=== PATIENT | male | born 1935 | race African-American/Black ===

== ENCOUNTER 2018-10-19 13:25 | Inpatient (IN) | payer MEDICARE, MEDICAID ==
[~2018-10-19] VITALS: Ht 167.6 cm; Wt 102.0 kg
[2018-10-19 13:00] VITALS: BP 126/73
[~2018-10-19 13:25] MED LIST: ATOR10TA PO; BRIM.2 BOTHEYE; CEPH500C2 PO; GABA100C PO; MECL25TA3 PO; NAP5EC PO; NASOI NS; OMEP20CA5 PO; TERB250T51 PO; VERA240C2 PO; [UNRECOGNIZED DRUG - CODE] TOP; [UNRECOGNIZED DRUG - CODE] TP
[2018-10-19] MEDS ORDERED: LACTULOSE 20G/30ML UDC PO SCH (14:00)
[2018-10-19] MEDS ORDERED: ONDANSETRON 4MG ODT PO PRN (14:15)
[2018-10-19] MEDS ORDERED: IPRATROPIUM BROMIDE (0.02%) 0.5MG/2.5ML NEB HHN PRN (14:15)
[2018-10-19] MEDS ORDERED: CLONIDINE 0.1MG TABLET PO PRN (14:15)
[2018-10-19] MEDS ORDERED: LORAZEPAM 0.5MG TABLET PO PRN (14:15)
[2018-10-19] MEDS ORDERED: IPRATROPIUM/ALBUTEROL 0.5-3(2.5)MG/3ML NEB HHN PRN (14:30)
[2018-10-19] MEDS: APIXABAN 5 MG TABLET PO SCH (17:22)
[2018-10-19] MEDS: DIGOXIN 250MCG TABLET PO SCH (17:23)
[2018-10-19] MEDS: DILTIAZEM HCL 60MG TABLET PO SCH (17:24)
[2018-10-19 20:00] VITALS: BP 114/55
[2018-10-19] MEDS: LACTULOSE 20G/30ML UDC PO SCH (20:00)
[2018-10-19] MEDS: FAMOTIDINE 20MG TABLET PO SCH (22:31)
[2018-10-19] MEDS: METOPROLOL TARTRATE 50MG TABLET PO SCH (22:31)
[2018-10-20 07:53] VITALS: BP 137/65
[2018-10-20] MEDS: METOPROLOL TARTRATE 50MG TABLET PO SCH ×2 (09:05→20:38)
[2018-10-20] MEDS: FAMOTIDINE 20MG TABLET PO SCH ×2 (09:05→20:38)
[2018-10-20] MEDS: LACTULOSE 20G/30ML UDC PO SCH (09:05)
[2018-10-20] MEDS: APIXABAN 5 MG TABLET PO SCH ×2 (09:05→16:10)
[2018-10-20] MEDS: DILTIAZEM HCL 60MG TABLET PO SCH ×3 (09:05→16:10)
[2018-10-20 09:31] LABS: BASOPHILS % 0.9 % (0.0-2.0); EOSINOPHILS % 2.2 % (0.0-5.0); HEMATOCRIT. 37.3 % (42.0-52.0); HEMOGLOBIN. 12.6 g/dL (14.0-18.0); LYMPHOCYTES % 17.7 % (20.0-50.0); MEAN CORPUSCULAR HEMOGLOBIN 30.6 pg (28.0-32.0); MEAN CORPUSCULAR VOLUME 90.4 fL (80.0-94.0); MEAN PLATELET VOLUME 7.5 fl (7.4-10.4); MONOCYTES % 7.6 % (2.0-8.0); NEUTROPHILS % 71.6 % (40.0-76.0); PLATELET 408 x1000/uL (130-400); RED BLOOD CELL COUNT 4.13 mill/uL (4.7-6.1); RED CELL DISTRIBUTION WIDTH 13.6 % (11.6-14.6)
[2018-10-20 09:44] LABS: CHLORIDE 106 mEq/L (98-107)
[2018-10-20] MEDS ORDERED: BISACODYL 10MG SUPP PR NR (12:30)
[2018-10-20] MEDS: DIGOXIN 250MCG TABLET PO SCH (16:10)
[2018-10-20 20:00] VITALS: BP 133/61
[2018-10-20] MEDS: ACETAMINOPHEN 650MG/20.3ML UDC PO PRN (20:38)
[2018-10-20] MEDS: LACTULOSE 20G/30ML UDC PO PRN (20:38)
[2018-10-21 06:18] LABS: BASOPHILS % 0.9 % (0.0-2.0); HEMOGLOBIN. 12.4 g/dL (14.0-18.0); LYMPHOCYTES % 22.9 % (20.0-50.0); MEAN CORPUSCULAR HEMOGLOBIN 30.9 pg (28.0-32.0); MEAN CORPUSCULAR VOLUME 90.1 fL (80.0-94.0); MEAN PLATELET VOLUME 7.1 fl (7.4-10.4); MONOCYTES % 8.6 % (2.0-8.0); NEUTROPHILS % 65.6 % (40.0-76.0); PLATELET 400 x1000/uL (130-400); RED CELL DISTRIBUTION WIDTH 13.5 % (11.6-14.6)
[2018-10-21 06:23] LABS: CHLORIDE 105 mEq/L (98-107)
[2018-10-21 06:36] LABS: TOTAL IRON BINDING CAPACITY 305 ug/dL (250-450)
[2018-10-21 06:42] LABS: FOLIC ACID (FOLATE) SERUM 15.3 ng/mL (>5.38)
[2018-10-21 06:52] LABS: PROSTRATE SPECIFIC AG TOTAL 0.04 ng/mL (0.0-4.0)
[2018-10-21 08:00] VITALS: BP 121/70
[2018-10-21] MEDS: DILTIAZEM HCL 60MG TABLET PO SCH ×3 (09:01→16:56)
[2018-10-21] MEDS: METOPROLOL TARTRATE 50MG TABLET PO SCH ×2 (09:01→20:50)
[2018-10-21] MEDS: FAMOTIDINE 20MG TABLET PO SCH ×2 (09:01→20:50)
[2018-10-21] MEDS: LACTULOSE 20G/30ML UDC PO SCH (09:01)
[2018-10-21] MEDS: APIXABAN 5 MG TABLET PO SCH ×2 (11:22→16:55)
[2018-10-21] MEDS ORDERED: SORBITOL 70% SOLN 30ML PO SCH (12:15)
[2018-10-21] MEDS: FERROUS SULFATE 325MG TABLET PO SCH ×2 (12:44→16:55)
[2018-10-21] MEDS: ASCORBIC ACID 500 MG TABLET PO SCH (12:44)
[2018-10-21] MEDS: DIGOXIN 250MCG TABLET PO SCH (17:00)
[2018-10-21 20:00] VITALS: BP 132/59
[2018-10-21] MEDS: NA PHOS,M-B/NA PHOS,DI-BA ENEMA 118ML PR PRN (20:51)
[2018-10-22 08:17] VITALS: BP 129/62
[2018-10-22] MEDS: FERROUS SULFATE 325MG TABLET PO SCH ×3 (09:01→17:12)
[2018-10-22] MEDS: DILTIAZEM HCL 60MG TABLET PO SCH ×3 (09:02→17:14)
[2018-10-22] MEDS: FAMOTIDINE 20MG TABLET PO SCH ×2 (09:03→21:51)
[2018-10-22] MEDS: METOPROLOL TARTRATE 50MG TABLET PO SCH ×2 (09:03→21:50)
[2018-10-22] MEDS: APIXABAN 5 MG TABLET PO SCH ×2 (09:03→17:12)
[2018-10-22] MEDS: ASCORBIC ACID 500 MG TABLET PO SCH (09:03)
[2018-10-22] MEDS: LACTULOSE 20G/30ML UDC PO SCH (09:06)
[2018-10-22] MEDS: ACETAMINOPHEN 650MG/20.3ML UDC PO PRN (11:16)
[2018-10-22] MEDS: LIDOCAINE 5% PATCH TOP SCH (12:22)
[2018-10-22] MEDS: METHYL SALICYLATE/MENTHOL CREAM 85GM TOP PRN (14:39)
[2018-10-22] MEDS: DOCUSATE SODIUM 100MG CAPSULE PO SCH (17:12)
[2018-10-22] MEDS: DIGOXIN 250MCG TABLET PO SCH (17:13)
[2018-10-22 20:00] VITALS: BP 137/70
[2018-10-22] MEDS: POLYETHYLENE GLYCOL 3350 (17GM) 1 DOSE PACK PO SCH (21:00)
[2018-10-23 07:55] LABS: CLARITY URINE CLEAR (CLEAR); COLOR URINE YELLOW (YELLOW); KETONES URINE NEGATIVE (NEGATIVE); LEUKOCYTE ESTERASE URINE NEGATIVE (NEGATIVE); NITRITE URINE NEGATIVE (NEGATIVE); OCCULT BLOOD URINE NEGATIVE (NEGATIVE); PH URINE 5.5 (4.5-8.0); PROTEIN URINE NEGATIVE (NEGATIVE); SPECIFIC GRAVITY URINE 1.021 (1.005-1.030)
[2018-10-23 08:10] VITALS: BP 126/60
[2018-10-23] MEDS: LACTULOSE 20G/30ML UDC PO SCH (08:33)
[2018-10-23] MEDS: ACETAMINOPHEN 650MG/20.3ML UDC PO PRN (08:33)
[2018-10-23] MEDS: METOPROLOL TARTRATE 50MG TABLET PO SCH ×2 (08:34→21:48)
[2018-10-23] MEDS: FAMOTIDINE 20MG TABLET PO SCH ×2 (08:34→21:48)
[2018-10-23] MEDS: DOCUSATE SODIUM 100MG CAPSULE PO SCH ×2 (08:34→16:23)
[2018-10-23] MEDS: FERROUS SULFATE 325MG TABLET PO SCH ×3 (08:34→16:23)
[2018-10-23] MEDS: DILTIAZEM HCL 60MG TABLET PO SCH ×3 (08:34→16:24)
[2018-10-23] MEDS: ASCORBIC ACID 500 MG TABLET PO SCH (08:34)
[2018-10-23] MEDS: LIDOCAINE 5% PATCH TOP SCH (08:35)
[2018-10-23] MEDS: APIXABAN 5 MG TABLET PO SCH ×2 (10:55→16:23)
[2018-10-23] MEDS: DIGOXIN 250MCG TABLET PO SCH (17:09)
[2018-10-23 20:00] VITALS: BP 143/59
[2018-10-23] MEDS: POLYETHYLENE GLYCOL 3350 (17GM) 1 DOSE PACK PO SCH (21:48)
[2018-10-24 07:36] LABS: BASOPHILS % 0.9 % (0.0-2.0); EOSINOPHILS % 0.9 % (0.0-5.0); HEMATOCRIT. 35.6 % (42.0-52.0); LYMPHOCYTES % 20.5 % (20.0-50.0); MEAN CORPUSCULAR HEMOGLOBIN 30.4 pg (28.0-32.0); MEAN CORPUSCULAR VOLUME 90.5 fL (80.0-94.0); MEAN PLATELET VOLUME 7.3 fl (7.4-10.4); NEUTROPHILS % 66.7 % (40.0-76.0); PLATELET 406 x1000/uL (130-400); RED BLOOD CELL COUNT 3.93 mill/uL (4.7-6.1); RED CELL DISTRIBUTION WIDTH 13.8 % (11.6-14.6)
[2018-10-24 07:49] LABS: CHLORIDE 101 mEq/L (98-107)
[2018-10-24 07:53] VITALS: BP 128/66
[2018-10-24] MEDS: ACETAMINOPHEN 650MG/20.3ML UDC PO PRN (09:04)
[2018-10-24] MEDS: LACTULOSE 20G/30ML UDC PO SCH (09:04)
[2018-10-24] MEDS: METOPROLOL TARTRATE 50MG TABLET PO SCH ×2 (09:05→21:06)
[2018-10-24] MEDS: DILTIAZEM HCL 60MG TABLET PO SCH ×3 (09:05→16:11)
[2018-10-24] MEDS: DOCUSATE SODIUM 100MG CAPSULE PO SCH ×2 (09:05→16:11)
[2018-10-24] MEDS: ASCORBIC ACID 500 MG TABLET PO SCH (09:05)
[2018-10-24] MEDS: APIXABAN 5 MG TABLET PO SCH ×2 (09:05→16:11)
[2018-10-24] MEDS: FAMOTIDINE 20MG TABLET PO SCH ×2 (09:05→21:06)
[2018-10-24] MEDS: FERROUS SULFATE 325MG TABLET PO SCH ×3 (09:05→16:11)
[2018-10-24] MEDS: LIDOCAINE 5% PATCH TOP SCH (09:06)
[2018-10-24] MEDS: DIGOXIN 250MCG TABLET PO SCH (17:09)
[2018-10-24 20:00] VITALS: BP 117/63
[2018-10-24] MEDS: POLYETHYLENE GLYCOL 3350 (17GM) 1 DOSE PACK PO SCH (21:07)
[2018-10-25] MEDS: NA PHOS,M-B/NA PHOS,DI-BA ENEMA 118ML PR PRN (05:47)
[2018-10-25 08:00] VITALS: BP 127/54
[2018-10-25] MEDS: LACTULOSE 20G/30ML UDC PO SCH (09:06)
[2018-10-25] MEDS: DILTIAZEM HCL 60MG TABLET PO SCH ×3 (09:07→17:42)
[2018-10-25] MEDS: DOCUSATE SODIUM 100MG CAPSULE PO SCH ×2 (09:07→17:39)
[2018-10-25] MEDS: FAMOTIDINE 20MG TABLET PO SCH ×2 (09:07→20:55)
[2018-10-25] MEDS: APIXABAN 5 MG TABLET PO SCH ×2 (09:07→17:40)
[2018-10-25] MEDS: FERROUS SULFATE 325MG TABLET PO SCH ×3 (09:07→17:40)
[2018-10-25] MEDS: ASCORBIC ACID 500 MG TABLET PO SCH (09:08)
[2018-10-25] MEDS: METOPROLOL TARTRATE 50MG TABLET PO SCH ×2 (09:08→20:56)
[2018-10-25] MEDS: LIDOCAINE 5% PATCH TOP SCH (09:17)
[2018-10-25] MEDS: METHYL SALICYLATE/MENTHOL CREAM 85GM TOP PRN ×2 (09:28→16:18)
[2018-10-25 17:11] LABS: 25-HYDROXY VITAMIN D3 11 ng/mL (.)
[2018-10-25] MEDS ORDERED: BISACODYL 10MG SUPP PR SCH (17:15)
[2018-10-25] MEDS: DIGOXIN 250MCG TABLET PO SCH (17:40)
[2018-10-25] MEDS ORDERED: LACTULOSE 20G/30ML UDC PO SCH (18:00)
[2018-10-25 20:00] VITALS: BP 141/67
[2018-10-25] MEDS: POLYETHYLENE GLYCOL 3350 (17GM) 1 DOSE PACK PO SCH (20:56)
[2018-10-26 08:00] VITALS: BP 136/78
[2018-10-26] MEDS: ASCORBIC ACID 500 MG TABLET PO SCH (08:13)
[2018-10-26] MEDS: METHYL SALICYLATE/MENTHOL CREAM 85GM TOP PRN (08:13)
[2018-10-26] MEDS: APIXABAN 5 MG TABLET PO SCH ×2 (08:13→17:47)
[2018-10-26] MEDS: FAMOTIDINE 20MG TABLET PO SCH ×2 (08:13→20:47)
[2018-10-26] MEDS: DOCUSATE SODIUM 100MG CAPSULE PO SCH ×2 (08:13→16:16)
[2018-10-26] MEDS: FERROUS SULFATE 325MG TABLET PO SCH ×3 (08:13→16:16)
[2018-10-26] MEDS: ACETAMINOPHEN 650MG/20.3ML UDC PO PRN (08:14)
[2018-10-26] MEDS: DILTIAZEM HCL 60MG TABLET PO SCH ×3 (08:14→16:19)
[2018-10-26] MEDS: LIDOCAINE 5% PATCH TOP SCH (08:15)
[2018-10-26] MEDS: METOPROLOL TARTRATE 50MG TABLET PO SCH ×2 (08:15→20:47)
[2018-10-26] MEDS: ERGOCALCIFEROL 50000UNITS CAPSULE PO SCH (12:30)
[2018-10-26] MEDS: DIGOXIN 250MCG TABLET PO SCH (17:47)
[2018-10-26 20:00] VITALS: BP 140/73
[2018-10-26] MEDS: POLYETHYLENE GLYCOL 3350 (17GM) 1 DOSE PACK PO SCH (20:47)
[2018-10-27 08:00] VITALS: BP 141/79
[2018-10-27] MEDS: DOCUSATE SODIUM 100MG CAPSULE PO SCH ×2 (08:41→17:24)
[2018-10-27] MEDS: FAMOTIDINE 20MG TABLET PO SCH ×2 (08:41→20:47)
[2018-10-27] MEDS: FERROUS SULFATE 325MG TABLET PO SCH ×3 (08:41→17:27)
[2018-10-27] MEDS: APIXABAN 5 MG TABLET PO SCH ×2 (08:41→17:24)
[2018-10-27] MEDS: DILTIAZEM HCL 60MG TABLET PO SCH ×3 (08:41→17:24)
[2018-10-27] MEDS: ASCORBIC ACID 500 MG TABLET PO SCH (08:41)
[2018-10-27] MEDS: METOPROLOL TARTRATE 50MG TABLET PO SCH ×2 (08:42→20:47)
[2018-10-27] MEDS: LIDOCAINE 5% PATCH TOP SCH (08:44)
[2018-10-27 13:00] VITALS: BP 160/82
[2018-10-27 17:05] VITALS: BP 112/55
[2018-10-27] MEDS: DIGOXIN 250MCG TABLET PO SCH (17:24)
[2018-10-27 20:00] VITALS: BP 142/62
[2018-10-27] MEDS: POLYETHYLENE GLYCOL 3350 (17GM) 1 DOSE PACK PO SCH (20:47)
[2018-10-27] MEDS: LACTULOSE 20G/30ML UDC PO PRN (20:48)
[2018-10-28 06:35] LABS: BASOPHILS % 0.9 % (0.0-2.0); EOSINOPHILS % 1.5 % (0.0-5.0); HEMATOCRIT. 40.1 % (42.0-52.0); HEMOGLOBIN. 13.4 g/dL (14.0-18.0); LYMPHOCYTES % 27.5 % (20.0-50.0); MEAN CORPUSCULAR HEMOGLOBIN 30.7 pg (28.0-32.0); MEAN CORPUSCULAR VOLUME 91.5 fL (80.0-94.0); MEAN PLATELET VOLUME 7.4 fl (7.4-10.4); MONOCYTES % 11.1 % (2.0-8.0); PLATELET 403 x1000/uL (130-400); RED BLOOD CELL COUNT 4.38 mill/uL (4.7-6.1); RED CELL DISTRIBUTION WIDTH 13.7 % (11.6-14.6)
[2018-10-28 06:42] LABS: CHLORIDE 103 mEq/L (98-107)
[2018-10-28 07:30] VITALS: BP 166/96
[2018-10-28 07:50] VITALS: BP 166/78
[2018-10-28] MEDS: FAMOTIDINE 20MG TABLET PO SCH ×2 (08:53→20:15)
[2018-10-28] MEDS: ASCORBIC ACID 500 MG TABLET PO SCH (08:53)
[2018-10-28] MEDS: DOCUSATE SODIUM 100MG CAPSULE PO SCH ×2 (08:53→17:15)
[2018-10-28] MEDS: APIXABAN 5 MG TABLET PO SCH ×2 (08:53→17:15)
[2018-10-28] MEDS: DILTIAZEM HCL 60MG TABLET PO SCH ×3 (08:53→17:16)
[2018-10-28] MEDS: FERROUS SULFATE 325MG TABLET PO SCH ×3 (08:53→17:15)
[2018-10-28] MEDS: METOPROLOL TARTRATE 50MG TABLET PO SCH ×2 (08:53→20:15)
[2018-10-28] MEDS: LIDOCAINE 5% PATCH TOP SCH (08:55)
[2018-10-28 11:56] VITALS: BP 110/55
[2018-10-28 16:41] VITALS: BP 117/60
[2018-10-28] MEDS: DIGOXIN 250MCG TABLET PO SCH (17:15)
[2018-10-28 20:00] VITALS: BP 126/65
[2018-10-28] MEDS: POLYETHYLENE GLYCOL 3350 (17GM) 1 DOSE PACK PO SCH (20:15)
[2018-10-29 08:00] VITALS: BP 154/76
[2018-10-29] MEDS: FAMOTIDINE 20MG TABLET PO SCH ×2 (08:43→20:33)
[2018-10-29] MEDS: DOCUSATE SODIUM 100MG CAPSULE PO SCH ×2 (08:43→17:19)
[2018-10-29] MEDS: METOPROLOL TARTRATE 50MG TABLET PO SCH ×2 (08:43→20:33)
[2018-10-29] MEDS: APIXABAN 5 MG TABLET PO SCH ×2 (08:43→17:00)
[2018-10-29] MEDS: FERROUS SULFATE 325MG TABLET PO SCH ×3 (08:43→17:19)
[2018-10-29] MEDS: ASCORBIC ACID 500 MG TABLET PO SCH (08:43)
[2018-10-29] MEDS: DILTIAZEM HCL 60MG TABLET PO SCH ×3 (08:44→17:20)
[2018-10-29] MEDS: LIDOCAINE 5% PATCH TOP SCH (08:45)
[2018-10-29] MEDS: LACTULOSE 20G/30ML UDC PO SCH ×2 (14:00→21:03)
[2018-10-29] MEDS: DIGOXIN 250MCG TABLET PO SCH (17:19)
[2018-10-29 20:00] VITALS: BP 137/78
[2018-10-29] MEDS: POLYETHYLENE GLYCOL 3350 (17GM) 1 DOSE PACK PO SCH (20:33)
[2018-10-30] MEDS: LACTULOSE 20G/30ML UDC PO SCH ×3 (05:47→17:05)
[2018-10-30 08:02] VITALS: BP 133/74
[2018-10-30] MEDS: FAMOTIDINE 20MG TABLET PO SCH ×2 (08:53→20:34)
[2018-10-30] MEDS: FERROUS SULFATE 325MG TABLET PO SCH ×3 (08:53→17:02)
[2018-10-30] MEDS: DIPHENHYDRAMINE 25MG CAPSULE PO PRN (08:53)
[2018-10-30] MEDS: ASCORBIC ACID 500 MG TABLET PO SCH (08:53)
[2018-10-30] MEDS: DILTIAZEM HCL 60MG TABLET PO SCH ×3 (08:54→17:03)
[2018-10-30] MEDS: METOPROLOL TARTRATE 50MG TABLET PO SCH ×2 (08:54→20:34)
[2018-10-30] MEDS: DOCUSATE SODIUM 100MG CAPSULE PO SCH ×2 (08:54→17:02)
[2018-10-30] MEDS: APIXABAN 5 MG TABLET PO SCH ×2 (08:54→17:02)
[2018-10-30] MEDS: LIDOCAINE 5% PATCH TOP SCH (08:54)
[2018-10-30 09:20] LABS: CHLORIDE 103 mEq/L (98-107)
[2018-10-30] MEDS: DIGOXIN 250MCG TABLET PO SCH (17:02)
[2018-10-30 20:00] VITALS: BP 150/66
[2018-10-30] MEDS: POLYETHYLENE GLYCOL 3350 (17GM) 1 DOSE PACK PO SCH (20:34)
[2018-10-31 08:04] VITALS: BP 161/60
[2018-10-31] MEDS: DOCUSATE SODIUM 100MG CAPSULE PO SCH ×2 (09:00→17:00)
[2018-10-31] MEDS: ACETAMINOPHEN 650MG/20.3ML UDC PO PRN (09:24)
[2018-10-31] MEDS: LIDOCAINE 5% PATCH TOP SCH (09:24)
[2018-10-31] MEDS: APIXABAN 5 MG TABLET PO SCH ×2 (09:24→17:00)
[2018-10-31] MEDS: DILTIAZEM HCL 60MG TABLET PO SCH ×3 (09:24→17:00)
[2018-10-31] MEDS: ASCORBIC ACID 500 MG TABLET PO SCH (09:25)
[2018-10-31] MEDS: FAMOTIDINE 20MG TABLET PO SCH ×2 (09:25→21:31)
[2018-10-31] MEDS: METOPROLOL TARTRATE 50MG TABLET PO SCH ×2 (09:25→21:31)
[2018-10-31] MEDS: DIPHENHYDRAMINE 25MG CAPSULE PO PRN ×2 (09:25→21:32)
[2018-10-31] MEDS: FERROUS SULFATE 325MG TABLET PO SCH ×3 (09:25→17:00)
[2018-10-31] MEDS: DIGOXIN 250MCG TABLET PO SCH (17:00)
[2018-10-31] MEDS: LACTULOSE 20G/30ML UDC PO SCH (17:05)
[2018-10-31 20:00] VITALS: BP 137/71
[2018-10-31] MEDS: POLYETHYLENE GLYCOL 3350 (17GM) 1 DOSE PACK PO SCH (21:00)
[2018-11-01 08:01] LABS: BASOPHILS % 0.8 % (0.0-2.0); EOSINOPHILS % 2.8 % (0.0-5.0); HEMATOCRIT. 39.9 % (42.0-52.0); HEMOGLOBIN. 13.6 g/dL (14.0-18.0); LYMPHOCYTES % 26.2 % (20.0-50.0); MEAN CORPUSCULAR VOLUME 90.8 fL (80.0-94.0); MEAN PLATELET VOLUME 7.3 fl (7.4-10.4); NEUTROPHILS % 59.2 % (40.0-76.0); PLATELET 245 x1000/uL (130-400); RED BLOOD CELL COUNT 4.39 mill/uL (4.7-6.1); RED CELL DISTRIBUTION WIDTH 13.6 % (11.6-14.6)
[2018-11-01 08:06] LABS: CHLORIDE 100 mEq/L (98-107)
[2018-11-01 08:11] VITALS: BP 117/61
[2018-11-01] MEDS: METOPROLOL TARTRATE 50MG TABLET PO SCH ×2 (09:15→21:40)
[2018-11-01] MEDS: LIDOCAINE 5% PATCH TOP SCH (09:15)
[2018-11-01] MEDS: DILTIAZEM HCL 60MG TABLET PO SCH ×3 (09:15→16:53)
[2018-11-01] MEDS: ASCORBIC ACID 500 MG TABLET PO SCH (09:16)
[2018-11-01] MEDS: FERROUS SULFATE 325MG TABLET PO SCH ×3 (09:16→16:53)
[2018-11-01] MEDS: FAMOTIDINE 20MG TABLET PO SCH ×2 (09:16→21:40)
[2018-11-01] MEDS: DOCUSATE SODIUM 100MG CAPSULE PO SCH ×2 (09:16→16:53)
[2018-11-01] MEDS: APIXABAN 5 MG TABLET PO SCH ×2 (09:16→16:53)
[2018-11-01] MEDS: ACETAMINOPHEN 650MG/20.3ML UDC PO PRN ×2 (09:20→21:36)
[2018-11-01] MEDS: LACTULOSE 20G/30ML UDC PO SCH (17:00)
[2018-11-01] MEDS: DIGOXIN 250MCG TABLET PO SCH (17:00)
[2018-11-01 20:00] VITALS: BP 163/81
[2018-11-01] MEDS: DIPHENHYDRAMINE 25MG CAPSULE PO PRN ×2 (21:37→22:54)
[2018-11-01] MEDS: POLYETHYLENE GLYCOL 3350 (17GM) 1 DOSE PACK PO SCH (21:40)
[2018-11-01 23:00] VITALS: BP 142/68
[2018-11-02 08:00] VITALS: BP 151/80
[2018-11-02] MEDS: ERGOCALCIFEROL 50000UNITS CAPSULE PO SCH (08:59)
[2018-11-02] MEDS: LIDOCAINE 5% PATCH TOP SCH (08:59)
[2018-11-02] MEDS: ASCORBIC ACID 500 MG TABLET PO SCH (08:59)
[2018-11-02] MEDS: DOCUSATE SODIUM 100MG CAPSULE PO SCH ×2 (08:59→17:28)
[2018-11-02] MEDS: APIXABAN 5 MG TABLET PO SCH ×2 (09:00→17:28)
[2018-11-02] MEDS: METOPROLOL TARTRATE 50MG TABLET PO SCH ×2 (09:00→20:54)
[2018-11-02] MEDS: FAMOTIDINE 20MG TABLET PO SCH ×2 (09:00→20:55)
[2018-11-02] MEDS: FERROUS SULFATE 325MG TABLET PO SCH ×3 (09:00→17:28)
[2018-11-02] MEDS: DILTIAZEM HCL 60MG TABLET PO SCH ×3 (09:01→17:31)
[2018-11-02] MEDS: LACTULOSE 20G/30ML UDC PO SCH (17:28)
[2018-11-02] MEDS: DIGOXIN 250MCG TABLET PO SCH (17:28)
[2018-11-02 20:00] VITALS: BP 144/72
[2018-11-02] MEDS: POLYETHYLENE GLYCOL 3350 (17GM) 1 DOSE PACK PO SCH (20:54)
[2018-11-03 08:00] VITALS: BP 157/94
[2018-11-03] MEDS: LIDOCAINE 5% PATCH TOP SCH (09:00)
[2018-11-03] MEDS: FAMOTIDINE 20MG TABLET PO SCH (10:03)
[2018-11-03] MEDS: FERROUS SULFATE 325MG TABLET PO SCH (10:03)
[2018-11-03] MEDS: ASCORBIC ACID 500 MG TABLET PO SCH (10:03)
[2018-11-03] MEDS: METOPROLOL TARTRATE 50MG TABLET PO SCH (10:04)
[2018-11-03] MEDS: DOCUSATE SODIUM 100MG CAPSULE PO SCH (10:04)
[2018-11-03] MEDS: DILTIAZEM HCL 60MG TABLET PO SCH (10:04)
[2018-11-03] MEDS: APIXABAN 5 MG TABLET PO SCH (10:04)
[2018-11-03 11:21] VITALS: BP 157/99
== END 2018-11-03 14:10 | disposition home health service (06) | DRG 91 ==
PROVIDERS: ADMIT Physical Medicine & Rehabilitation Spinal Cord Injury Medicine; ATTEND Hospitalist
DX: G92 Toxic encephalopathy (principal); S72.142A Displaced intertrochanteric fracture of left femur, initial encounter for closed fracture; I50.30 Unspecified diastolic (congestive) heart failure; E72.20 Disorder of urea cycle metabolism, unspecified; I48.91 Unspecified atrial fibrillation; R53.81 Other malaise; M54.40 Lumbago with sciatica, unspecified side; I11.0 Hypertensive heart disease with heart failure; R74.0 Nonspecific elevation of levels of transaminase and lactic acid dehydrogenase [LDH]; E78.5 Hyperlipidemia, unspecified; R13.10 Dysphagia, unspecified; D64.9 Anemia, unspecified; R26.9 Unspecified abnormalities of gait and mobility; M19.90 Unspecified osteoarthritis, unspecified site; F03.90 Unspecified dementia, unspecified severity, without behavioral disturbance, psychotic disturbance, mood disturbance, and anxiety; E78.00 Pure hypercholesterolemia, unspecified; G89.29 Other chronic pain; D50.9 Iron deficiency anemia, unspecified; E55.9 Vitamin D deficiency, unspecified; K59.00 Constipation, unspecified; S61.511A Laceration without foreign body of right wrist, initial encounter; X58.XXXA Exposure to other specified factors, initial encounter; W01.0XXA Fall on same level from slipping, tripping and stumbling without subsequent striking against object, initial encounter; Y93.89 Activity, other specified; Z85.46 Personal history of malignant neoplasm of prostate; Z85.038 Personal history of other malignant neoplasm of large intestine; Z90.79 Acquired absence of other genital organ(s); Z90.49 Acquired absence of other specified parts of digestive tract; Y92.89 Other specified places as the place of occurrence of the external cause; Y99.8 Other external cause status
CPT/HCPCS: 36415; 73560; 74018; 76700; 80048; 80162; 82140; 82248; 82306; 82607; 82728; 82746; 83540; 83550; 83735; 84100; 84134; 84153; 84443; 92523; 92610; 93970; 97110; 97116; 97162; 97167; 97530; 97535; A6261; Q0163; G0103